=== PATIENT | female | born 1970 | race Asian ===

== ENCOUNTER → 2017-07-19 | Outpatient (CLI) | payer OTHER ==
[2017-07-19 09:43] LABS: ALBUMIN 3.7 gm/dl (3.4-5.0); ALKALINE PHOSPHATASE 55 U/L (45-117); ALT/SGPT 30 U/L (12-78); AST/SGOT 24 U/L (15-37); TOTAL PROTEIN 7.1 gm/dl (6.4-8.2)
== END | disposition home or self-care (01) ==
LOC: C.LAB1850 08:17
PROVIDERS: ATTEND Internal Medicine
DX: K75.4 Autoimmune hepatitis (principal); M35.00 Sjogren syndrome, unspecified